=== PATIENT | female | born 1980 | race Caucasian/White ===

== ENCOUNTER 2017-05-25 06:46 | Emergency (ER) | payer OTHER ==
[~2017-05-25] VITALS: Ht 160 cm; Wt 83.0 kg
[~2017-05-25 06:46] MED LIST: CLR10 PO; LORA10TA57 PO
[2017-05-25 06:52] VITALS: TEMP 36.9; Ht 160 cm; Wt 83.0 kg
[2017-05-25] MEDS ORDERED: KETOROLAC TROMETHAMINE 30 MG/ML VIAL IV STA (06:57)
[2017-05-25] MEDS ORDERED: ONDANSETRON INJ 2 MG/ML 2 ML VIAL IV STA (06:57)
[2017-05-25] MEDS ORDERED: SODIUM CHLORIDE 0.9% 1000ML 1,000 ML IV STA (06:57)
--- NOTE | 2017-05-25 07:12 | EMERGENCY ROOM VISIT NOTE ---
History Report prepared by Lizette: Leatha Gauthier Under the Supervision of: Trevor CasasO. First contact with patient: 06:56 Chief Complaint: FLANK PAIN Stated Complaint: SEVER PAIN IN RT SIDE/BACK,PAINFUL URGE TO URINATE History of Present Illness The patient is a 36 year old female who presents to the Emergency Room with complaints of constant severe pain on the right side of her back that started just prior to arrival. She states that her back pain is radiating to her front right abdomen. The patient notes that she woke up with the painful urge to urinate. The patient states that she has had two pregnancies but has no children. Source of History: patient Onset: just prior to arrival Position: back Symptom Intensity: severe Quality: other (radiating) Timing: constant Associated Symptoms: + abdominal pain (radiating from back), + urinary symptoms (painful urge to urinate) Review of Systems See HPI for pertinent positives & negatives. A total of 10 systems reviewed and were otherwise negative. Past Medical & Surgical Medical Problems: (1) Lumbar strain (2) Family History no pertinent family history stated Social History Smoking Status: Never Smoker Alcohol Use: none Drug Use: none Marital Status: single Occupation Status: employed Current/Historical Medications Scheduled Cetirizine (Zyrtec), 10 MG PO DAILY Ethinyl Estrad/Norgestimate (Sprintec 28), 1 TAB PO DAILY Fluticasone Propionate (Flovent Hfa), 2 PUFFS INH DAILY Tamsulosin Hcl (Flomax), 0.4 MG PO HS Scheduled PRN Albuterol Hfa (Ventolin Hfa), 2 PUFFS INH Q6H PRN for SOB/Wheezing Oxycodone/Acetaminophen 5MG/325MG (Percocet 5MG/325MG), 1 TAB PO Q6H PRN for Pain Allergies Coded Allergies: Erythromycin (Unverified Allergy, Mild, 05/25/17) Physical Exam Vital Signs Date Time Temp Pulse Resp B/P (MAP) Pulse Ox O2 Delivery O2 Flow Rate FiO2 05/25/17 10:41 70 18 113/69 97 05/25/17 09:52 69 20 119/66 97 Room Air 05/25/17 08:03 77 20 116/63 97 Room Air 05/25/17 06:52 36.9 77 18 124/84 99 Room Air Physical Exam CONSTITUTIONAL/VITAL SIGNS: Reviewed / noted above. GENERAL: Non-toxic in appearance. INTEGUMENTARY: Warm, dry, and Effie. HEAD: Normocephalic. EYES: without scleral icterus or trauma. ENT/OROPHARYNX: clear and moist. LYMPHADENOPATHY/NECK: Is supple without lymphadenopathy or meningismus. RESPIRATORY: Lungs clear and equal. CARDIOVASCULAR: Regular rate and rhythm. GI/ABDOMEN: Soft and nontender. No organomegaly or pulsatile mass. No rebound or guarding. Normal bowel sounds. EXTREMITIES: Warm and well perfused. BACK: Right CVA tenderness. NEUROLOGICAL: Intact without focal deficits. PSYCHIATRIC: normal affect. MUSCULOSKELETAL: Normally developed with good muscle tone. Medical Decision & Procedures ER Provider Diagnostic Interpretation: Radiology results as stated below per my review and radiologist interpretation: CT OF THE ABDOMEN AND PELVIS WITHOUT CONTRAST, STONE PROTOCOL FINDINGS: A 6 mm distal right ureteral calculus results in mild right hydroureteronephrosis. There are multiple right renal calculi which measure up to 3 mm. There are probable punctate left renal calculi. A left pelvic calcification likely reflects a phlebolith. There is no evidence for a bowel obstruction. Evaluation the remainder of the abdomen and pelvis is suboptimal on this unenhanced exam. Unenhanced images of the liver, spleen, adrenal glands and pancreas are normal. The appendix is normal. There is no lymphadenopathy. There is a 2.5 cm cyst or dominant follicle within the right ovary. Note is made of grade I anterolisthesis of L5 on S1 due to bilateral L5 pars defects. IMPRESSION: 1. 6 mm distal right ureteral calculus which results in mild right hydroureteronephrosis. 2. Multiple right renal calculi which measure up to 3 mm. Suspected punctate left renal calculi. Electronically signed by: Edison Mason M.D. Laboratory Results 05/25/17 07:15 Red Blood Count 4.19, Mean Corpuscular Volume 94.7, Mean Corpuscular Hemoglobin 32.2, Mean Corpuscular Hemoglobin Concent 34.0, Mean Platelet Volume 10.7, Neutrophils (%) (Auto) 59.3, Lymphocytes (%) (Auto) 30.2, Monocytes (%) (Auto) 6.1, Eosinophils (%) (Auto) 3.8, Basophils (%) (Auto) 0.5, Neutrophils # (Auto) 4.56, Lymphocytes # (Auto) 2.32, Monocytes # (Auto) 0.47, Eosinophils # (Auto) 0.29, Basophils # (Auto) 0.04 05/25/17 07:15 Test 05/25/17 07:15 05/25/17 07:54 White Blood Count 7.69 K/uL (4.8-10.8) Red Blood Count 4.19 M/uL (4.2-5.4) Hemoglobin 13.5 g/dL (12.0-16.0) Hematocrit 39.7 % (37-47) Mean Corpuscular Volume 94.7 fL (80-100) Mean Corpuscular Hemoglobin 32.2 pg (25-34) Mean Corpuscular Hemoglobin Concent 34.0 g/dl (32-36) Platelet Count 282 K/uL (130-400) Mean Platelet Volume 10.7 fL (7.4-10.4) Neutrophils (%) (Auto) 59.3 % Lymphocytes (%) (Auto) 30.2 % Monocytes (%) (Auto) 6.1 % Eosinophils (%) (Auto) 3.8 % Basophils (%) (Auto) 0.5 % Neutrophils # (Auto) 4.56 K/uL (1.4-6.5) Lymphocytes # (Auto) 2.32 K/uL (1.2-3.4) Monocytes # (Auto) 0.47 K/uL (0.11-0.59) Eosinophils # (Auto) 0.29 K/uL (0-0.5) Basophils # (Auto) 0.04 K/uL (0-0.2) RDW Standard Deviation 47.6 fL (36.4-46.3) RDW Coefficient of Variation 13.9 % (11.5-14.5) Immature Granulocyte % (Auto) 0.1 % Immature Granulocyte # (Auto) 0.01 K/uL (0.00-0.02) Anion Gap 5.0 mmol/L (3-11) Est Creatinine Clear Calc Drug Dose 79.3 ml/min Estimated GFR () 83.9 Estimated GFR (Non- 72.4 BUN/Creatinine Ratio 12.5 (10-20) Calcium Level 9.0 mg/dl (8.5-10.1) Total Bilirubin 0.4 mg/dl (0.2-1) Direct Bilirubin < 0.1 mg/dl (0-0.2) Aspartate Amino Transf (AST/SGOT) 11 U/L (15-37) Alanine Aminotransferase (ALT/SGPT) 16 U/L (12-78) Alkaline Phosphatase 54 U/L (45-117) Total Protein 6.8 gm/dl (6.4-8.2) Albumin 3.4 gm/dl (3.4-5.0) Lipase 159 U/L (73-393) Urine Color ORANGE Urine Appearance CLOUDY (CLEAR) Urine pH 8.5 (4.5-7.5) Urine Specific [place] 1.024 (1.000-1.030) Urine Protein TRACE (NEG) Urine Glucose (UA) NEG (NEG) Urine Ketones NEG (NEG) Urine Occult Blood 3+ (NEG) Urine Nitrite NEG (NEG) Urine Bilirubin NEG (NEG) Urine Urobilinogen NEG (NEG) Urine Leukocyte Esterase TRACE (NEG) Urine WBC (Auto) 1-5 /hpf (0-5) Urine RBC (Auto) >30 /hpf (0-4) Urine Hyaline Casts (Auto) 0 /lpf (0-5) Urine Epithelial Cells (Auto) >30 /lpf (0-5) Urine Bacteria (Auto) NEG (NEG) Urine Test NEG (NEG) Laboratory results as stated above per my review. Medications Administered Medications (Trade) Dose Ordered Sig/Marycarmen Route Start Time Stop Time Status Last Admin Dose Admin Sodium Chloride 1,000 ml @ 999 mls/hr Q1H1M STAT IV 05/25/17 06:57 05/25/17 07:57 DC 05/25/17 07:16 999 MLS/HR Ondansetron HCl (Zofran Inj) 4 mg NOW STAT IV 05/25/17 06:57 05/25/17 06:58 DC 05/25/17 07:16 4 MG Ketorolac Tromethamine (Toradol Inj) 30 mg NOW STAT IV 05/25/17 06:57 05/25/17 06:58 DC 05/25/17 07:16 30 MG Tamsulosin HCl (Flomax Cap) 0.4 mg NOW ONCE PO 05/25/17 10:15 05/25/17 10:16 DC 05/25/17 10:33 0.4 MG ED Course 0656: Previous medical records were reviewed. The patient was evaluated in room B7. A complete history and physical examination was performed. 0657: Toradol Inj 30 mg IV, Zofran Inj 4 mg IV, Sodium Chloride 1000 ml @ 999 mls/hr IV. 1015: Flomax Cap 0.4 mg PO 1020: On reevaluation, the patient is resting. I discussed the results and findings with the patient. She verbalized agreement of the treatment plan. the patient was discharged home. Medical Decision Differential considered: pancreatitis, hepatitis, or acute cholecystitis, AAA, UTI, pyelonephritis, kidney stones, appendicitis, diverticulitis, shingles, bowel obstruction mesenteric ischemia, intussusception,hernia, ovarian torsion , ruptured ovarian cyst,ectopic , . This is a 36-year-old female who presents to the ED with a chief complaint of right flank pain. The symptoms started around 3 AM this morning. She also reports the urge to urinate. Her last menstrual period started in the last 48 hours. She is a . The patient has right CVA tenderness on exam. She has no abdominal tenderness. Her vital signs are normal. The patient's CBC and PRP are normal. A CT scan suggests a 6 mm distal right ureteral calculus with some obstructive changes. Urine did not show obvious infection. She is not . The patient was treated with IV fluids, IV Toradol and IV Zofran. She was given by mouth Flomax. She was told the results. She is felt to be stable for discharge and outpatient follow-up. Blood Pressure Screening Patient's blood pressure: Normal blood pressure Blood pressure disposition: Did not require urgent referral Impression Primary Impression: Renal colic Additional Impression: Ureteral calculus Scribe Attestation The scribe's documentation has been prepared under my direction and personally reviewed by me in its entirety. I confirm that the note above accurately reflects all work, treatment, procedures, and medical decision making performed by me. Departure Information Dispostion Home / Self-Care Prescriptions Oxycodone/Acetaminophen 5MG/325MG (PERCOCET 5MG/325MG) Tab 1 TAB PO Q6H Y for Pain, #20 TAB Prov: Saul Black D.O. 05/25/17 Tamsulosin Hcl (FLOMAX) 0.4 Mg Cap 0.4 MG PO HS, #6 CAP Prov: Saul Black D.O. 05/25/17 Referrals No Doctor, Assigned (PCP) Forms HOME CARE DOCUMENTATION FORM, IMPORTANT VISIT INFORMATION Patient Instructions Kidney Stones - [facility], My [facility] Additional Instructions Take ibuprofen 600 mg every 6 hours until passage of stone. Strain urine for stone. Flomax as prescribed. Percocet as prescribed. No driving within 6 hours of use. Do not take additional Tylenol while taking Percocet. Follow-up with your doctor for further care and evaluation in 1-2 days. Return to the emergency department for worsening or new symptoms or any concerns. You have been examined and treated today on an emergency basis only. This is not a substitute for, or an effort to provide, complete comprehensive medical care. It is impossible to recognize and treat all injuries or illnesses in a single emergency department visit. It is therefore important that you follow up closely with your doctor. Call as soon as possible for an appointment. Problem Qualifiers
[2017-05-25 07:31] LABS: BASO % 0.5 %; BASO ABS # 0.04 K/uL (0-0.2); COMPLETE YES; EOS % 3.8 %; HEMATOCRIT 39.7 % (37-47); IG% 0.1 %; LYMPH % 30.2 %; LYMPH ABS # 2.32 K/uL (1.2-3.4); MEAN CELL VOLUME 94.7 fL (80-100); MEAN CORPUSCULAR HEMOGLOBIN 32.2 pg (25-34); MEAN PLATELET VOLUME 10.7 fL (7.4-10.4); MONO % 6.1 %; NEUT % 59.3 %; PLATELET COUNT 282 K/uL (130-400); RED BLOOD COUNT 4.19 M/uL (4.2-5.4); WHITE BLOOD COUNT 7.69 K/uL (4.8-10.8)
[2017-05-25 07:49] LABS: ALT/SGPT 16 U/L (12-78); AST/SGOT 11 U/L (15-37); BLOOD UREA NITROGEN 12 mg/dl (7-18); BUN/CREATININE RATIO 12.5 (10-20); CARBON DIOXIDE 27 mmol/L (21-32); CHLORIDE 108 mmol/L (98-107); GLUCOSE 94 mg/dl (70-99); POTASSIUM 3.9 mmol/L (3.5-5.1); SODIUM 140 mmol/L (136-145)
[2017-05-25 07:52] LABS: ALKALINE PHOSPHATASE 54 U/L (45-117)
[2017-05-25 08:06] LABS: URINE APPEARANCE CLOUDY (CLEAR); URINE BILIRUBIN NEG (NEG); URINE COLOR ORANGE; URINE EPITHELIAL CELL AUTO >30 /lpf (0-5); URINE NITRITE NEG (NEG); URINE PH 8.5 (4.5-7.5); URINE SPECIFIC GRAVITY 1.024 (1.000-1.030); UROBILINOGEN NEG (NEG); ZZUR CULT IF INDIC CLEAN CATCH NO
--- NOTE | 2017-05-25 08:14 | DIAGNOSTIC IMAGING REPORT ---
CT OF THE ABDOMEN AND PELVIS WITHOUT CONTRAST, STONE PROTOCOL CLINICAL HISTORY: Right flank pain. COMPARISON STUDY: None. TECHNIQUE: Helical axial images of the abdomen and pelvis were obtained without IV or oral contrast according to renal stone protocol. A dose lowering technique was utilized adhering to the principles of ALARA. FINDINGS: A 6 mm distal right ureteral calculus results in mild right hydroureteronephrosis. There are multiple right renal calculi which measure up to 3 mm. There are probable punctate left renal calculi. A left pelvic calcification likely reflects a phlebolith. There is no evidence for a bowel obstruction. Evaluation the remainder of the abdomen and pelvis is suboptimal on this unenhanced exam. Unenhanced images of the liver, spleen, adrenal glands and pancreas are normal. The appendix is normal. There is no lymphadenopathy. There is a 2.5 cm cyst or dominant follicle within the right ovary. Note is made of grade I anterolisthesis of L5 on S1 due to bilateral L5 pars defects. IMPRESSION: 1. 6 mm distal right ureteral calculus which results in mild right hydroureteronephrosis. 2. Multiple right renal calculi which measure up to 3 mm. Suspected punctate left renal calculi. Electronically signed by: Edison Mason M.D. 05/25/2017 8:13 AM Dictated Date/Time: 05/25/2017 7:50 AM
[2017-05-25 08:24] LABS: MANUAL MICROSCOPIC REQUIRED? NO; REVIEW REQ? NO; SULFASALICYLIC ACID POS (NEG)
[2017-05-25] MEDS ORDERED: OXYC-57 PO (10:07)
[2017-05-25] MEDS ORDERED: TAMS0.4C38 PO (10:07)
[2017-05-25] MEDS ORDERED: TAMSULOSIN HCL 0.4 MG CAP PO ONE (10:15)
[2017-05-25 10:41] VITALS: BP 113/69; PULSE 70; O2SAT 97
[2017-05-29] MEDS ORDERED: FLVHFA110 INH (07:08)
[2017-05-29] MEDS ORDERED: SPR28 PO (07:08)
[2017-05-29] MEDS ORDERED: CETI10TA84 PO (07:08)
[2017-05-29] MEDS ORDERED: VNTHFA/IN INH (07:08)
== END 2017-05-25 10:43 | disposition home or self-care (01) ==
LOC: C.EDB 06:47
DX: N23 Unspecified renal colic (principal); N20.1 Calculus of ureter; Z79.899 Other long term (current) drug therapy

== ENCOUNTER 2017-05-29 13:59 | Inpatient (IN) | payer OTHER ==
[~2017-05-29] VITALS: Ht 160 cm; Wt 82.0 kg
[~2017-05-29 13:59] MED LIST changes: +CETI10TA84 PO; -CLR10 PO; +FLVHFA110 INH; -LORA10TA57 PO; +OXYC-57 PO; +SPR28 PO; +TAMS0.4C38 PO; +VNTHFA/IN INH
--- NOTE | 2017-05-29 15:37 | EMERGENCY ROOM VISIT NOTE ---
History First contact with patient: 15:21 Chief Complaint: REFERRED BY DOCTOR Stated Complaint: KIDNEY STONE - SEVERE PAIN - DR WYMAN History of Present Illness The patient is a 36 year old female who presents to the Emergency Room via private vehicle with complaints of "kidney stone, severe pain, Dr. wyman". The patient states that she was seen here Thursday, and diagnosed with a right sided renal calculi at 6 mm. She was given Flomax, and Percocet and try to pass the stone on her own at home, however the pain is persisted. She has also had no bowel movement since Thursday. She is concerned medication may have caused her bowel movements to be slowed. She notes she has tried to pass stool , and has had to digitally disimpact herself without success. She notes her family doctor told her to package pick up an enema from [facility], which she called Dr. Dominguez, her urologist who recommended she come here to the emergency department for further evaluation and management. She has right flank pain rated as an 8/10, lower abdominal pressure since Thursday rated as a 7/10. She has been taking the Flomax each day at 6 PM. She also takes the Percocet as needed for pain. She denies chance of . She denies any hematuria since Thursday. There's been no nausea, vomiting or diarrhea. No fevers. She does feel cold at times of severe pain. She denies any previous history of renal calculi, or other urinary tract problems. She last took her Percocet 20 minutes prior to arrival here in the waiting room at 3:20 PM. She states that this has been severely limiting her ability to work. Review of Systems A complete 10-point Review of Systems was discussed with the patient, with pertinent positives and negatives listed in the History of Present Illness. All remaining Review of Systems questions can be considered negative unless otherwise specified. Past Medical/Surgical History Medical Problems: (1) Asthma (2) Lumbar strain (3) Surgical Problems: (1) Status post therapeutic Family History No pertinent family history. Social History Smoking Status: Never Smoker Alcohol Use: none Drug Use: none Marital Status: single Occupation Status: employed Current/Historical Medications Scheduled Cetirizine (Zyrtec), 10 MG PO DAILY Ethinyl Estrad/Norgestimate (Sprintec 28), 1 TAB PO DAILY Fluticasone Propionate (Flovent Hfa), 2 PUFFS INH BID Tamsulosin Hcl (Flomax), 0.4 MG PO HS Scheduled PRN Albuterol Hfa (Ventolin Hfa), 2 PUFFS INH Q4 PRN for SOB/Wheezing Oxycodone/Acetaminophen 5MG/325MG (Percocet 5MG/325MG), 1 TAB PO Q6H PRN for Pain Physical Exam Vital Signs Date Time Temp Pulse Resp B/P (MAP) Pulse Ox O2 Delivery O2 Flow Rate FiO2 05/29/17 16:12 62 05/29/17 16:09 96 Room Air 05/29/17 16:00 68 12 114/64 98 Room Air 05/29/17 14:04 37.0 89 20 140/79 96 Room Air Physical Exam VITAL SIGNS - Vital signs and nursing notes were reviewed. Patient is afebrile , blood pressure 140/70, non-tachycardic and is saturating well on room air at 96%. GENERAL -36-year-old female appearing her stated age who is in no acute distress. Communicates well with provider and answers questions appropriately. SKIN - Without rashes. No petechial rashes. HEAD - NC/AT. LUNGS - Chest wall symmetric without accessory muscle use, intercostals retractions, or central cyanosis. Normal vesicular breath sounds CTA B/L. No wheezes, rales, or rhonchi appreciated. CARDIAC - RRR with S1/S2. No murmur, rubs, or gallops appreciated. ABDOMEN - Abdominal contour without pulsations or visible masses. BS normoactive all four quadrants. There is suprapubic abdominal tenderness, and right-sided CVA tenderness. No palpable masses, hepatosplenomegaly, or ascites noted. Medical Decision & Procedures ER Provider Diagnostic Interpretation: KUB HISTORY: Hx renal calculi, no bowel movement acute low back and right flank pain. COMPARISON: CT abdomen and pelvis 05/25/2017. FINDINGS: The bowel gas pattern is non-obstructive. There is moderate volume of formed stool within the right hemicolon. There is no organomegaly. 6 x 4 mm calculus which was previously seen within the region of the distal right ureter appears to have migrated slightly caudally and medially, possibly within the region of the urinary bladder. No pneumoperitoneum or pneumatosis. No fracture. IMPRESSION: Previously noted 6 x 4 mm calculus of the distal right ureter appears to have migrated slightly caudally and medially suggesting location within the urinary bladder lumen. Electronically signed by: Brayan Galvan M.D. 05/29/2017 4:37 PM Dictated Date/Time: 05/29/2017 4:34 PM Laboratory Results Test 05/29/17 15:35 05/29/17 16:00 Prothrombin Time 10.2 SECONDS (9.0-12.0) Prothromb Time International Ratio 1.0 (0.9-1.1) Activated Partial Thromboplast Time 25.9 SECONDS (21.0-31.0) Partial Thromboplastin Ratio 1.0 Total Bilirubin 0.3 mg/dl (0.2-1) Aspartate Amino Transf (AST/SGOT) 25 U/L (15-37) Alanine Aminotransferase (ALT/SGPT) 30 U/L (12-78) Alkaline Phosphatase 57 U/L (45-117) Total Protein 8.0 gm/dl (6.4-8.2) Albumin 4.1 gm/dl (3.4-5.0) Globulin 3.9 gm/dl (2.5-4.0) Albumin/Globulin Ratio 1.1 (0.9-2) Urine Color YELLOW Urine Appearance CLEAR (CLEAR) Urine pH 6.0 (4.5-7.5) Urine Specific [place] 1.011 (1.000-1.030) Urine Protein NEG (NEG) Urine Glucose (UA) NEG (NEG) Urine Ketones TRACE (NEG) Urine Occult Blood TRACE (NEG) Urine Nitrite NEG (NEG) Urine Bilirubin NEG (NEG) Urine Urobilinogen NEG (NEG) Urine Leukocyte Esterase NEG (NEG) Urine WBC (Auto) 0 /hpf (0-5) Urine RBC (Auto) 0-4 /hpf (0-4) Urine Hyaline Casts (Auto) 0 /lpf (0-5) Urine Epithelial Cells (Auto) 0-5 /lpf (0-5) Urine Bacteria (Auto) NEG (NEG) Urine Test NEG (NEG) Medications Administered Medications (Trade) Dose Ordered Sig/Marycarmen Route Start Time Stop Time Status Last Admin Dose Admin Morphine Sulfate (MoRPHine SULFATE INJ) 4 mg NOW STAT IV 05/29/17 15:47 05/29/17 15:49 DC 05/29/17 16:07 4 MG Ondansetron HCl (Zofran Inj) 4 mg NOW STAT IV 05/29/17 15:47 05/29/17 15:49 DC 05/29/17 16:07 4 MG Sodium Chloride 1,000 ml @ 999 mls/hr Q1H1M STAT IV 05/29/17 15:47 05/29/17 16:47 DC 05/29/17 16:07 999 MLS/HR Medical Decision Patient was seen and evaluated as above. After obtaining a thorough history and physical examination IV access was initiated, and the above workup was performed. Patient presents to us today with persistent right flank pain after the diagnosis of renal calculi, as well as now to review with abdominal pain without a bowel movement over the past few days. She's been taking opioid pain medication as prescribed. She is tried to digitally disimpact herself without good relief. At this time because of the hydronephrosis, and the patient has essentially try the outpatient management I do believe that inpatient management is warranted, with neurologic consult. I did speak with Dr. Dominguez regarding the patient case after obtaining a KUB x-ray. It was decided to admit the patient for IV pain control, have the patient to try and pass the stone inpatient, and if not potential removal in the morning. CBC reveals no leukocytosis or anemia. Coags unremarkable. Metabolic panel unremarkable for emergent process. Urine reveals trace ketones occult blood. Urine test is negative. KUB results as above. I discussed the case with the hospitalist, who will admit the patient for further evaluation and management. In evaluation treatment this patient following differential diagnoses were entertained: Fecal impaction, retained urinary calculi, hydronephrosis, infected stone, pyelonephritis, UTI, among others. Impression Primary Impression: Ureteral calculus Departure Information Dispostion Admitted as an inpatient Condition GOOD Referrals Dorene Quiroga DO (PCP) Patient Instructions My [facility]
[2017-05-29 15:45] LABS: BASO % 0.3 %; BASO ABS # 0.03 K/uL (0-0.2); COMPLETE YES; EOS % 1.8 %; HEMATOCRIT 41.4 % (37-47); IG% 0.3 %; LYMPH % 22.8 %; LYMPH ABS # 2.18 K/uL (1.2-3.4); MEAN CELL VOLUME 95.6 fL (80-100); MEAN CORPUSCULAR HEMOGLOBIN 32.8 pg (25-34); MEAN CORPUSCULAR HGB CONC 34.3 g/dl (32-36); MEAN PLATELET VOLUME 10.5 fL (7.4-10.4); MONO % 5.4 %; NEUT % 69.4 %; PLATELET COUNT 319 K/uL (130-400); RED BLOOD COUNT 4.33 M/uL (4.2-5.4); WHITE BLOOD COUNT 9.56 K/uL (4.8-10.8)
[2017-05-29] MEDS ORDERED: ONDANSETRON INJ 2 MG/ML 2 ML VIAL IV STA (15:47)
[2017-05-29] MEDS ORDERED: MoRPHine SULFATE 4 MG/ML 1 ML CARP\\VIAL IV STA (15:47)
[2017-05-29] MEDS ORDERED: SODIUM CHLORIDE 0.9% 1000ML 1,000 ML IV STA (15:47)
[2017-05-29 15:54] LABS: PROTHROMBIN TIME (PATIENT) 10.2 SECONDS (9.0-12.0)
[2017-05-29 16:02] LABS: BUN/CREATININE RATIO 8.3 (10-20); CALCIUM 9.3 mg/dl (8.5-10.1); CREATININE 0.98 mg/dl (0.60-1.20); POTASSIUM 3.7 mmol/L (3.5-5.1)
[2017-05-29 16:05] LABS: ALB/GLOB RATIO 1.1 (0.9-2)
[2017-05-29 16:32] LABS: URINE APPEARANCE CLEAR (CLEAR); URINE BILIRUBIN NEG (NEG); URINE COLOR YELLOW; URINE EPITHELIAL CELL AUTO 0-5 /lpf (0-5); URINE NITRITE NEG (NEG); URINE SPECIFIC GRAVITY 1.011 (1.000-1.030); UROBILINOGEN NEG (NEG); ZZUR CULT IF INDIC CLEAN CATCH NO
[2017-05-29 16:33] LABS: MANUAL MICROSCOPIC REQUIRED? NO; REVIEW REQ? NO
--- NOTE | 2017-05-29 16:38 | DIAGNOSTIC IMAGING REPORT ---
KUB HISTORY: Hx renal calculi, no bowel movement acute low back and right flank pain. COMPARISON: CT abdomen and pelvis 05/25/2017. FINDINGS: The bowel gas pattern is non-obstructive. There is moderate volume of formed stool within the right hemicolon. There is no organomegaly. 6 x 4 mm calculus which was previously seen within the region of the distal right ureter appears to have migrated slightly caudally and medially, possibly within the region of the urinary bladder. No pneumoperitoneum or pneumatosis. No fracture. IMPRESSION: Previously noted 6 x 4 mm calculus of the distal right ureter appears to have migrated slightly caudally and medially suggesting location within the urinary bladder lumen. Electronically signed by: Brayan Galvan M.D. 05/29/2017 4:37 PM Dictated Date/Time: 05/29/2017 4:34 PM
[2017-05-29 17:43] VITALS: O2SAT 96; Ht 160 cm; Wt 82.0 kg
[2017-05-29] MEDS ORDERED: MoRPHine SULFATE 4 MG/ML 1 ML CARP\\VIAL IV PRN (17:45)
[2017-05-29] MEDS ORDERED: ACETAMINOPHEN 325 MG TAB PO PRN (17:45)
[2017-05-29] MEDS ORDERED: ONDANSETRON INJ 2 MG/ML 2 ML VIAL IV PRN (17:45)
[2017-05-29] MEDS ORDERED: ALBUTEROL HFA 8 GM INHALER INH PRN (18:00)
[2017-05-29] MEDS ORDERED: IV FLUIDS COMPLETED PRN (18:00)
[2017-05-29] MEDS ORDERED: BISACODYL 10 MG SUPP PR PRN (18:15)
[2017-05-29 19:28] VITALS: O2SAT 99
[2017-05-29] MEDS: SODIUM CHLORIDE 0.9% 1000ML 1,000 ML IV SCH (19:56)
[2017-05-29] MEDS ORDERED: POLYETHYLENE (MIRALAX) 17 GM PACK PO SCH (21:00)
[2017-05-29] MEDS ORDERED: TAMSULOSIN HCL 0.4 MG CAP PO SCH (21:00)
[2017-05-29] MEDS: FLUTICASONE HFA 110MCG INHALER INH SCH (21:00)
[2017-05-29] MEDS ORDERED: NURSING VERBAL MED ORDER ONE (21:00)
--- NOTE | 2017-05-29 21:02 | Urology Consultation ---
History General Date of Service: May 29, 2017. Chief Complaint: right renal colic Primary Care Physician: Dorene Quiroga,DO Pt seen a urologist before?: No History of Present Illness I am aasked by Dr Quiroga and Ms. Tra LEW to eval and treat pt for right renal colic. She was in ER Thursday with distal 5mm right ureteral stone on CT. She has failed outpatient med management due to pain and constipation. Stone has moved another half inch more distal and is at the UVJ now on new KUB today. Po intake is poor and constipation is severe. No fever. She has a 2mm right renal stone. Her creatinine is normal. Imaging Imaging: CT, KUB Laboratory Results Past 24 Hours Test 05/29/17 15:35 05/29/17 16:00 Range/Units White Blood Count 9.56 4.8-10.8 K/uL Red Blood Count 4.33 4.2-5.4 M/uL Hemoglobin 14.2 12.0-16.0 g/dL Hematocrit 41.4 37-47 % Mean Corpuscular Volume 95.6 80-100 fL Mean Corpuscular Hemoglobin 32.8 25-34 pg Mean Corpuscular Hemoglobin Concent 34.3 32-36 g/dl Platelet Count 319 130-400 K/uL Mean Platelet Volume 10.5 7.4-10.4 fL Neutrophils (%) (Auto) 69.4 % Lymphocytes (%) (Auto) 22.8 % Monocytes (%) (Auto) 5.4 % Eosinophils (%) (Auto) 1.8 % Basophils (%) (Auto) 0.3 % Neutrophils # (Auto) 6.63 1.4-6.5 K/uL Lymphocytes # (Auto) 2.18 1.2-3.4 K/uL Monocytes # (Auto) 0.52 0.11-0.59 K/uL Eosinophils # (Auto) 0.17 0-0.5 K/uL Basophils # (Auto) 0.03 0-0.2 K/uL RDW Standard Deviation 48.3 36.4-46.3 fL RDW Coefficient of Variation 13.9 11.5-14.5 % Immature Granulocyte % (Auto) 0.3 % Immature Granulocyte # (Auto) 0.03 0.00-0.02 K/uL Prothrombin Time 10.2 9.0-12.0 SECONDS Prothromb Time International Ratio 1.0 0.9-1.1 Activated Partial Thromboplast Time 25.9 21.0-31.0 SECONDS Partial Thromboplastin Ratio 1.0 Sodium Level 139 136-145 mmol/L Potassium Level 3.7 3.5-5.1 mmol/L Chloride Level 104 98-107 mmol/L Carbon Dioxide Level 27 21-32 mmol/L Anion Gap 8.0 3-11 mmol/L Blood Urea Nitrogen 8 7-18 mg/dl Creatinine 0.98 0.60-1.20 mg/dl Est Creatinine Clear Calc Drug Dose 80.5 ml/min Estimated GFR () 86.0 Estimated GFR (Non- 74.2 BUN/Creatinine Ratio 8.3 10-20 Random Glucose 88 70-99 mg/dl Calcium Level 9.3 8.5-10.1 mg/dl Total Bilirubin 0.3 0.2-1 mg/dl Aspartate Amino Transf (AST/SGOT) 25 15-37 U/L Alanine Aminotransferase (ALT/SGPT) 30 12-78 U/L Alkaline Phosphatase 57 45-117 U/L Total Protein 8.0 6.4-8.2 gm/dl Albumin 4.1 3.4-5.0 gm/dl Globulin 3.9 2.5-4.0 gm/dl Albumin/Globulin Ratio 1.1 0.9-2 Urine Color YELLOW Urine Appearance CLEAR CLEAR Urine pH 6.0 4.5-7.5 Urine Specific [place] 1.011 1.000-1.030 Urine Protein NEG NEG Urine Glucose (UA) NEG NEG Urine Ketones TRACE NEG Urine Occult Blood TRACE NEG Urine Nitrite NEG NEG Urine Bilirubin NEG NEG Urine Urobilinogen NEG NEG Urine Leukocyte Esterase NEG NEG Urine WBC (Auto) 0 0-5 /hpf Urine RBC (Auto) 0-4 0-4 /hpf Urine Hyaline Casts (Auto) 0 0-5 /lpf Urine Epithelial Cells (Auto) 0-5 0-5 /lpf Urine Bacteria (Auto) NEG NEG Urine Test NEG NEG Labs were reviewed and are within normal limits unless listed below. Labs are available in the chart and at [facility] Past History asthma Family History maternal grandfather had stones Social History Hx Tobacco Use In Past Year?: No Smoking: quit greater than 1 year (quit 10 yrs ago) Alcohol: socially Drug use: none Marital status: single, in relationship Housing status: lives alone Occupation status: employed ([employer]) History of MDRO No Allergies Coded Allergies: Erythromycin (Unverified Allergy, Mild, 05/25/17) Medications Home Medications: Home Meds and Scripts Medications Dose Route/Sig Max Daily Dose Days Date Category Percocet 5MG/325MG (Oxycodone/Acetaminophen) Tab 1 Tab PO Q6H PRN 05/25/17 Rx Flomax (Tamsulosin Hcl) 0.4 Mg Cap 0.4 Mg PO HS 05/25/17 Rx Zyrtec (Cetirizine HCl) 10 Mg Tab 10 Mg PO DAILY 05/25/17 Reported Sprintec 28 (Ethinyl Estradiol/Norgestimate) 1 Tab Tab 1 Tab PO DAILY 05/25/17 Reported Flovent Hfa (Fluticasone Propionate) 120 Puffs/51671 Mcg Aero 2 Puffs INH BID 05/25/17 Reported Ventolin Hfa (Albuterol) 200 Puffs/52461 Mcg Aers 2 Puffs INH Q4 PRN 05/25/17 Reported Inpatient Medications: Current Inpatient Medications Medications (Trade) Dose Ordered Sig/Marycarmen Route Start Time Stop Time Status Last Admin Dose Admin Acetaminophen (Tylenol Tab) 650 mg Q4H PRN PO 05/29/17 17:45 06/28/17 17:44 Ondansetron HCl (Zofran Inj) 4 mg Q6H PRN IV 05/29/17 17:45 06/28/17 17:44 Morphine Sulfate (MoRPHine SULFATE INJ) 4 mg Q6 PRN IV 05/29/17 17:45 06/12/17 17:44 05/29/17 20:02 4 MG Sodium Chloride 1,000 ml @ 125 mls/hr Q8H IV 05/29/17 19:45 06/28/17 19:44 05/29/17 19:56 125 MLS/HR Heparin Sodium (Porcine) (Heparin Sq 5000 Unit/0.5ml) 5,000 unit Q8 SQ 05/29/17 22:00 06/28/17 21:59 Albuterol (Ventolin Hfa Inhaler) 2 puffs Q4 PRN INH 05/29/17 18:00 06/28/17 17:59 Cetirizine HCl (zyrTEC TAB) 10 mg DAILY PO 05/30/17 09:00 06/29/17 08:59 Fluticasone Propionate (Flovent Hfa 110MCG Inhaler) 2 puffs BID INH 05/29/17 21:00 06/28/17 20:59 Tamsulosin HCl (Flomax Cap) 0.4 mg HS PO 05/29/17 21:00 06/28/17 20:59 Miscellaneous (Iv Fluids Completed) 1 ea PRN PRN N/A 05/29/17 18:00 05/29/18 17:59 Polyethylene (Miralax Powder Packet) 17 gm QPM PO 05/29/17 21:00 06/28/17 20:59 Docusate Sodium (coLACE CAP) 100 mg BID PO 05/29/17 21:00 06/28/17 20:59 Bisacodyl (Dulcolax Supp) 10 mg DAILY PRN KS 05/29/17 18:15 06/28/17 18:14 Miscellaneous Information (Order Awaiting Action) 1 ea QS N/A 05/30/17 00:00 06/29/17 00:00 Review of Systems Review of Systems Constitutional: + chills, No fever Neurological: No dizzy Endocrine: + tired/sluggish, No excessive thirst Gastrointestinal: + abdominal pain, + indigestion, + nausea, + constipation Cardiovascular: No chest pain, No palpitations Respiratory: No shortness of breath, No wheezing, No chronic cough Skin: No rash, No dry skin Musculoskeletal: No joint pain Female : + frequent urination, + painful urination, + kidney stones Physical Exam Vital Signs: Vital Signs Past 12 Hours Date Time Temp Pulse Resp B/P (MAP) Pulse Ox O2 Delivery O2 Flow Rate FiO2 05/29/17 19:33 60 16 119/72 98 05/29/17 19:28 37.1 66 18 119/72 99 Room Air 05/29/17 18:42 74 16 129/71 96 Room Air 05/29/17 17:43 96 Room Air 05/29/17 16:12 62 05/29/17 16:09 96 Room Air 05/29/17 16:00 68 12 114/64 98 Room Air 05/29/17 14:04 37.0 89 20 140/79 96 Room Air Physical Exam: General Appearance: WD/WN, no apparent distress, + pertinent finding (not toxic in no acute distress, look stired) Eyes: bilateral eyes normal inspection ENT: hearing grossly normal Neck: supple, no adenopathy, no JVD, trachea midline Respiratory/Chest: normal breath sounds, no respiratory distress, no accessory muscle use Gastrointestinal: Abdomen: normal abdomen Renal: cva tenderness (right) Hernia: absent hernia Liver: normal liver Spleen: normal spleen Extremities: non-tender, normal inspection, no pedal edema, no calf tenderness , normal capillary refill Neurologic/Psychiatric: alert, normal mood/affect, oriented x 3 Assessment & Plan Assessment & Plan 5mm right uvj stone has made progress since Thursday I am hopeful she will pass flomax daily strain urine just needs some pain meds to cover her in interim. The 4mg morphine is giving unpleasant total body sensation so we will try 2mg and add some toradol as well. I have described ureteroscopy and if she does not pass stone soon we will proceed to OR for right ureteroscopy laser lithotripsy basket stone extraction possible stent.
[2017-05-29] MEDS ORDERED: MoRPHine SULFATE 2 MG/ML CARP IV PRN (21:15)
[2017-05-29] MEDS ORDERED: KETOROLAC TROMETHAMINE 30 MG/ML VIAL IV. PRN (21:15)
[2017-05-29] MEDS: DOCUSATE SODIUM 100 MG CAP PO SCH (21:29)
[2017-05-29] MEDS: HEPARIN SOD 5000 UNIT/0.5 ML CARP SQ SCH (21:44)
--- NOTE | 2017-05-29 21:52 | History and Physical ---
History & Physical Date & Time of Service: May 29, 2017 at 17:49 Chief Complaint: Kidney Stone - Severe Pain - Dr Referred Primary Care Physician: Dorene Quiroga DO History of Present Illness Source: patient, clinic records, hospital records This is a 36 year old female with PMH of asthma who presents to the ED with right flank pain. Pt was seen in [facility] ER on 05/25/[address] a/p showed 6 mm R ureteral stone with mild right hydronephrosis. Pt was discharged on Percocet and Flomax. She has not passed the stone. She continues with right flank pain as well as suprapubic pain. Pain was not controlled using Percocet at home, but feels better after IV morphine given in ER. She reports no BM x 4 days. She has not tried any medication for constipation. Had hematuria on 05/25, but no further hematuria from that time. She notes pressure and burning after urination. Had cold sweats yesterday. Denies fever. Has been eating/ drinking normally. No nausea/ vomiting. No chest tightness or wheezing. Past Medical/Surgical History Medical Problems: (1) Asthma Status: Chronic (2) Lumbar strain Status: Resolved (3) Status: Resolved Surgical Problems: (1) Status post therapeutic Status: Chronic Social History Smoking Status: Never Smoker Drug Use: none Marital Status: single Housing status: lives alone Occupational Status: employed Multi-Drug Resistant Organisms History of MDRO: No Allergies Coded Allergies: Erythromycin (Unverified Allergy, Mild, 05/25/17) Home Medications Scheduled Cetirizine (Zyrtec), 10 MG PO DAILY Ethinyl Estrad/Norgestimate (Sprintec 28), 1 TAB PO DAILY Fluticasone Propionate (Flovent Hfa), 2 PUFFS INH BID Tamsulosin Hcl (Flomax), 0.4 MG PO HS Scheduled PRN Albuterol Hfa (Ventolin Hfa), 2 PUFFS INH Q4 PRN for SOB/Wheezing Oxycodone/Acetaminophen 5MG/325MG (Percocet 5MG/325MG), 1 TAB PO Q6H PRN for Pain Physical Exam Vital Signs Date Time Temp Pulse Resp B/P (MAP) Pulse Ox O2 Delivery O2 Flow Rate FiO2 05/29/17 16:12 62 05/29/17 16:09 96 Room Air 05/29/17 16:00 68 12 114/64 98 Room Air 05/29/17 14:04 37.0 89 20 140/79 96 Room Air General Appearance: WD/WN, no apparent distress, + pertinent finding (mother at bedside) Head: normocephalic, atraumatic Eyes: normal inspection, sclerae normal ENT: normal ENT inspection, hearing grossly normal Neck: supple, trachea midline Respiratory/Chest: lungs clear, normal breath sounds, no respiratory distress, no accessory muscle use Cardiovascular: regular rate, rhythm, no murmur Abdomen/GI: normal bowel sounds, soft, + pertinent finding (+ suprapubic and RLQ tenderness) Back: + right CVA tenderness (mild) Extremities/Musculoskelatal: normal inspection, no pedal edema Neurologic/Psych: alert, normal mood/affect, oriented x 3 Skin: normal color, warm/dry Diagnostics Laboratory Results Results Past 24 Hours Test 05/29/17 15:35 05/29/17 16:00 Range/Units White Blood Count 9.56 4.8-10.8 K/uL Red Blood Count 4.33 4.2-5.4 M/uL Hemoglobin 14.2 12.0-16.0 g/dL Hematocrit 41.4 37-47 % Mean Corpuscular Volume 95.6 80-100 fL Mean Corpuscular Hemoglobin 32.8 25-34 pg Mean Corpuscular Hemoglobin Concent 34.3 32-36 g/dl Platelet Count 319 130-400 K/uL Mean Platelet Volume 10.5 7.4-10.4 fL Neutrophils (%) (Auto) 69.4 % Lymphocytes (%) (Auto) 22.8 % Monocytes (%) (Auto) 5.4 % Eosinophils (%) (Auto) 1.8 % Basophils (%) (Auto) 0.3 % Neutrophils # (Auto) 6.63 1.4-6.5 K/uL Lymphocytes # (Auto) 2.18 1.2-3.4 K/uL Monocytes # (Auto) 0.52 0.11-0.59 K/uL Eosinophils # (Auto) 0.17 0-0.5 K/uL Basophils # (Auto) 0.03 0-0.2 K/uL RDW Standard Deviation 48.3 36.4-46.3 fL RDW Coefficient of Variation 13.9 11.5-14.5 % Immature Granulocyte % (Auto) 0.3 % Immature Granulocyte # (Auto) 0.03 0.00-0.02 K/uL Prothrombin Time 10.2 9.0-12.0 SECONDS Prothromb Time International Ratio 1.0 0.9-1.1 Activated Partial Thromboplast Time 25.9 21.0-31.0 SECONDS Partial Thromboplastin Ratio 1.0 Sodium Level 139 136-145 mmol/L Potassium Level 3.7 3.5-5.1 mmol/L Chloride Level 104 98-107 mmol/L Carbon Dioxide Level 27 21-32 mmol/L Anion Gap 8.0 3-11 mmol/L Blood Urea Nitrogen 8 7-18 mg/dl Creatinine 0.98 0.60-1.20 mg/dl Est Creatinine Clear Calc Drug Dose 80.5 ml/min Estimated GFR () 86.0 Estimated GFR (Non- 74.2 BUN/Creatinine Ratio 8.3 10-20 Random Glucose 88 70-99 mg/dl Calcium Level 9.3 8.5-10.1 mg/dl Total Bilirubin 0.3 0.2-1 mg/dl Aspartate Amino Transf (AST/SGOT) 25 15-37 U/L Alanine Aminotransferase (ALT/SGPT) 30 12-78 U/L Alkaline Phosphatase 57 45-117 U/L Total Protein 8.0 6.4-8.2 gm/dl Albumin 4.1 3.4-5.0 gm/dl Globulin 3.9 2.5-4.0 gm/dl Albumin/Globulin Ratio 1.1 0.9-2 Urine Color YELLOW Urine Appearance CLEAR CLEAR Urine pH 6.0 4.5-7.5 Urine Specific [place] 1.011 1.000-1.030 Urine Protein NEG NEG Urine Glucose (UA) NEG NEG Urine Ketones TRACE NEG Urine Occult Blood TRACE NEG Urine Nitrite NEG NEG Urine Bilirubin NEG NEG Urine Urobilinogen NEG NEG Urine Leukocyte Esterase NEG NEG Urine WBC (Auto) 0 0-5 /hpf Urine RBC (Auto) 0-4 0-4 /hpf Urine Hyaline Casts (Auto) 0 0-5 /lpf Urine Epithelial Cells (Auto) 0-5 0-5 /lpf Urine Bacteria (Auto) NEG NEG Urine Test NEG NEG Diagnostic Radiology KUB HISTORY: Hx renal calculi, no bowel movement acute low back and right flank pain. COMPARISON: CT abdomen and pelvis 05/25/2017. FINDINGS: The bowel gas pattern is non-obstructive. There is moderate volume of formed stool within the right hemicolon. There is no organomegaly. 6 x 4 mm calculus which was previously seen within the region of the distal right ureter appears to have migrated slightly caudally and medially, possibly within the region of the urinary bladder. No pneumoperitoneum or pneumatosis. No fracture. IMPRESSION: Previously noted 6 x 4 mm calculus of the distal right ureter appears to have migrated slightly caudally and medially suggesting location within the urinary bladder lumen. Impression Assessment and Plan RIGHT URETERAL STONE Failed outpatient treatment CT a/p from 05/25- 1. 6 mm distal right ureteral calculus which results in mild right hydroureteronephrosis. 2. Multiple right renal calculi which measure up to 3 mm. Suspected punctate left renal calculi. KUB shows previously noted 6 x 4 mm calculus of the distal right ureter appears to have migrated slightly caudally and medially suggesting location within the urinary bladder lumen Creat stable, afebrile, no leukocytosis, UA does not appear infected IVF's; PRN analgesics and antiemetics Continue Flomax and strain urine Urology consulted; discussed with Dr. Dominguez NPO after midnight in case of procedure in AM CONSTIPATION Bowel regimen added- Miralax, Colace, PRN Dulcolax suppository ASTHMA Not in exacerbation PRN inhaler DVT PROPHYLAXIS Heparin SQ- Hold 05/30 AM dose for possible procedure FULL CODE DISPOSITION Admission med/ surg Follows with Dr. Quiroga for primary care Patient seen in collaboration with Dr. Schroeder. Please see his addendum. Attending Physician Addendum Dr. Schroeder I have seen and examined the patient with CHARY Dutta. Patient has 5mm right stone and admitted for pain control with supportive care to pass the renal stone vs urology intervention such as ureteroscopy or lithotripsy. Will control to monitor for symptoms of abdominal or flank pain and follow with urology service whether active intervention is needed VTE Prophylaxis VTE Risk Assessment Done? Y/N: Yes Risk Level: Low
[2017-05-29 23:20] VITALS: BP 108/72; PULSE 62; TEMP 36.7; O2SAT 98
[2017-05-30] MEDS: SODIUM CHLORIDE 0.9% 1000ML 1,000 ML IV SCH ×2 (03:50→10:53)
[2017-05-30] MEDS: HEPARIN SOD 5000 UNIT/0.5 ML CARP SQ SCH ×2 (06:00→13:43)
[2017-05-30 06:54] LABS: BASO % 0.6 %; BASO ABS # 0.04 K/uL (0-0.2); COMPLETE YES; EOS % 5.4 %; IG% 0.3 %; LYMPH % 39.2 %; LYMPH ABS # 2.53 K/uL (1.2-3.4); MEAN CELL VOLUME 95.6 fL (80-100); MEAN CORPUSCULAR HEMOGLOBIN 32.4 pg (25-34); MEAN CORPUSCULAR HGB CONC 33.8 g/dl (32-36); MEAN PLATELET VOLUME 11.3 fL (7.4-10.4); MONO % 9.6 %; NEUT % 44.9 %; PLATELET COUNT 285 K/uL (130-400); RED BLOOD COUNT 4.08 M/uL (4.2-5.4); WHITE BLOOD COUNT 6.45 K/uL (4.8-10.8)
[2017-05-30 07:06] VITALS: BP 108/69; PULSE 75; TEMP 36.9; O2SAT 98
[2017-05-30 07:29] LABS: BUN/CREATININE RATIO 6.9 (10-20); CALCIUM 8.4 mg/dl (8.5-10.1); CREATININE 0.94 mg/dl (0.60-1.20)
[2017-05-30] MEDS ORDERED: CETIRIZINE HCL 10 MG TAB PO SCH (09:00)
[2017-05-30] MEDS ORDERED: ETHINYL ESTRAD PO SCH (09:00)
[2017-05-30] MEDS ORDERED: NORGESTIMATE PO SCH (09:00)
[2017-05-30] MEDS: FLUTICASONE HFA 110MCG INHALER INH SCH (09:05)
[2017-05-30] MEDS: DOCUSATE SODIUM 100 MG CAP PO SCH (09:06)
--- NOTE | 2017-05-30 12:40 | Progress Note ---
Subjective Date of Service: May 30, 2017. Subjective Pt evaluation today including: conversation w/ patient, physical exam, chart review Voiding: no voiding problems no flank pain. no morphine, no nausea. tolerating clear liquids, no stone recovered but she missed the hat once. plan kub today to see if stone still present. Problem List Medical Problems: (1) Ureteral calculus Status: Acute Review of Systems Constitutional: + fatigue, No fever, No chills, No sweats Eyes: + eye pain, + problem reported (headaches) Cardiac: No chest pain, No orthopnea Female : + urinary frequency, + hematuria, + vaginal discharge (menses), No dysuria Endo: + fatigue Objective Vital Signs Date Time Temp Pulse Resp B/P (MAP) Pulse Ox O2 Delivery O2 Flow Rate FiO2 05/30/17 08:29 Room Air 05/30/17 07:06 36.9 75 16 108/69 (82) 98 Room Air 05/30/17 00:15 Room Air 05/29/17 23:20 36.7 62 16 108/72 (84) 98 05/29/17 19:40 Room Air 05/29/17 19:33 60 16 119/72 98 05/29/17 19:28 37.1 66 18 119/72 99 Room Air 05/29/17 18:42 74 16 129/71 96 Room Air 05/29/17 17:43 96 Room Air 05/29/17 16:12 62 05/29/17 16:09 96 Room Air 05/29/17 16:00 68 12 114/64 98 Room Air 05/29/17 14:04 37.0 89 20 140/79 96 Room Air Physical Exam General Appearance: WD/WN, no apparent distress Eyes: normal inspection ENT: hearing grossly normal Respiratory/Chest: normal breath sounds, no respiratory distress, no accessory muscle use Neurologic/Psychiatric: alert, normal mood/affect, oriented x 3 Laboratory Results Last 24 Hours Test 05/29/17 15:35 05/29/17 16:00 05/30/17 05:41 White Blood Count 9.56 K/uL 6.45 K/uL Red Blood Count 4.33 M/uL 4.08 M/uL Hemoglobin 14.2 g/dL 13.2 g/dL Hematocrit 41.4 % 39.0 % Mean Corpuscular Volume 95.6 fL 95.6 fL Mean Corpuscular Hemoglobin 32.8 pg 32.4 pg Mean Corpuscular Hemoglobin Concent 34.3 g/dl 33.8 g/dl Platelet Count 319 K/uL 285 K/uL Mean Platelet Volume 10.5 fL 11.3 fL Neutrophils (%) (Auto) 69.4 % 44.9 % Lymphocytes (%) (Auto) 22.8 % 39.2 % Monocytes (%) (Auto) 5.4 % 9.6 % Eosinophils (%) (Auto) 1.8 % 5.4 % Basophils (%) (Auto) 0.3 % 0.6 % Neutrophils # (Auto) 6.63 K/uL 2.89 K/uL Lymphocytes # (Auto) 2.18 K/uL 2.53 K/uL Monocytes # (Auto) 0.52 K/uL 0.62 K/uL Eosinophils # (Auto) 0.17 K/uL 0.35 K/uL Basophils # (Auto) 0.03 K/uL 0.04 K/uL RDW Standard Deviation 48.3 fL 48.7 fL RDW Coefficient of Variation 13.9 % 13.9 % Immature Granulocyte % (Auto) 0.3 % 0.3 % Immature Granulocyte # (Auto) 0.03 K/uL 0.02 K/uL Prothrombin Time 10.2 SECONDS Prothromb Time International Ratio 1.0 Activated Partial Thromboplast Time 25.9 SECONDS Partial Thromboplastin Ratio 1.0 Sodium Level 139 mmol/L 140 mmol/L Potassium Level 3.7 mmol/L 4.0 mmol/L Chloride Level 104 mmol/L 107 mmol/L Carbon Dioxide Level 27 mmol/L 25 mmol/L Anion Gap 8.0 mmol/L 8.0 mmol/L Blood Urea Nitrogen 8 mg/dl 6 mg/dl Creatinine 0.98 mg/dl 0.94 mg/dl Est Creatinine Clear Calc Drug Dose 80.5 ml/min 83.9 ml/min Estimated GFR () 86.0 90.5 Estimated GFR (Non- 74.2 78.1 BUN/Creatinine Ratio 8.3 6.9 Random Glucose 88 mg/dl 83 mg/dl Calcium Level 9.3 mg/dl 8.4 mg/dl Total Bilirubin 0.3 mg/dl Aspartate Amino Transf (AST/SGOT) 25 U/L Alanine Aminotransferase (ALT/SGPT) 30 U/L Alkaline Phosphatase 57 U/L Total Protein 8.0 gm/dl Albumin 4.1 gm/dl Globulin 3.9 gm/dl Albumin/Globulin Ratio 1.1 Urine Color YELLOW Urine Appearance CLEAR Urine pH 6.0 Urine Specific [place] 1.011 Urine Protein NEG Urine Glucose (UA) NEG Urine Ketones TRACE Urine Occult Blood TRACE Urine Nitrite NEG Urine Bilirubin NEG Urine Urobilinogen NEG Urine Leukocyte Esterase NEG Urine WBC (Auto) 0 /hpf Urine RBC (Auto) 0-4 /hpf Urine Hyaline Casts (Auto) 0 /lpf Urine Epithelial Cells (Auto) 0-5 /lpf Urine Bacteria (Auto) NEG Urine Test NEG Assessment and Plan right uvj stone olic resolved hopefully passed she still has pelvis pressure but uncertain if it is menses, or constipation or stone
[2017-05-30] MEDS ORDERED: SOD PHOSPHATE/SOD BIPHOSPHATE ENEMA 132 ML BTL PR STA (13:41)
[2017-05-30] MEDS ORDERED: SOD PHOSPHATE/SOD BIPHOSPHATE ENEMA 132 ML BTL ONE (13:47)
--- NOTE | 2017-05-30 14:33 | DIAGNOSTIC IMAGING REPORT ---
KUB CLINICAL HISTORY: 36 years-old Female presenting with rt uvj stone . TECHNIQUE: Single supine view of the abdomen was obtained. COMPARISON: 05/29/2017. FINDINGS: The distal right ureteral calculus remains in place in the region of the ureterovesical junction, unchanged. No additional calcification projects over the renal shadows. Moderate stool burden. No gross pneumoperitoneum. Lung bases clear. Osseous structures normal. IMPRESSION: 1. No change in position of the right ureteral calculus in the region of the ureterovesical junction. Electronically signed by: Modesto Muir M.D. 05/30/2017 2:32 PM Dictated Date/Time: 05/30/2017 2:30 PM
[2017-05-30 15:29] VITALS: BP 113/75; PULSE 64; TEMP 36.9; O2SAT 100
[2017-05-30] MEDS ORDERED: NURSING VERBAL MED ORDER ONE (17:30)
[2017-05-30] MEDS ORDERED: MRLP17X PO (18:21)
[2017-05-30 18:23] VITALS: BP 113/75; PULSE 64; TEMP 36.9; O2SAT 100
--- NOTE | 2017-05-30 18:23 | Discharge Instructions ---
Discharge Instructions Date of Service May 30, 2017. Admission Reason for Admission: Ureteral Calculus Discharge Discharge Diagnosis / Problem: Ureteral calculus Discharge Goals Goal(s): Decrease discomfort, Improve function Activity Recommendations Activity Limitations: resume your previous activity . Instructions / Follow-Up Instructions / Follow-Up FOLLOWUP WITH FAMILY DOCTOR Dorene Elias ON May AT 10:55AM FOLLOWUP WITH UROLOGY IN 2 WEEKS TO CALL (PHONE NO PROVIDED) IF PAIN RECURS. Current Hospital Diet Patient's current hospital diet: Clear Liquid Diet Discharge Diet Recommended Diet: Regular Diet Pending Studies Studies pending at discharge: no Medical Emergencies . Who to Call and When: Medical Emergencies: If at any time you feel your situation is an emergency, please call 911 immediately. . Non-Emergent Contact Non-Emergency issues call your: Primary Care Provider . . "Provider Documentation" section prepared by Chato Pappas. . VTE Core Measure Inpt VTE Proph given/why not?: Unfractionated heparin SQ
--- NOTE | 2017-05-30 18:59 | Progress Note ---
Internal Med Progress Note Date of Service: May 30, 2017. Provider Documentation: SUBJECTIVE: pain resolved moved bowels afebrile kub shows still stone present but patient wants to go home and pass stone at home OBJECTIVE: Vital Signs-as noted below Exam: General-alert and oriented. Not in distress ENT-normal hearing Neck-no neck masses Lungs-cta b/l no wheezing or crackles Heart-s1 and s2 heard regular rate and rhythm, no murmurs Abdomen- non tender no distension Extremities no edema no erythema Neuro-alert and oriented moves extremities Lab data as noted below. ASSESSMENT & PLAN: RIGHT URETERAL STONE Failed outpatient treatment CT a/p from 05/25- 1. 6 mm distal right ureteral calculus which results in mild right hydroureteronephrosis. 2. Multiple right renal calculi which measure up to 3 mm. Suspected punctate left renal calculi. KUB shows previously noted 6 x 4 mm calculus of the distal right ureter appears to have migrated slightly caudally and medially suggesting location within the urinary bladder lumen To Continue Flomax and strain urine KUB today shows stone still present but pain resolved and patient wants to go home and pass stone at home f/u urology Urology recommends to call them, if pain recurs and to come to er for procedure. CONSTIPATION Bowel regimen added- Miralax prn. ASTHMA stable discharged home Vital Signs: Date Time Temp Pulse Resp B/P (MAP) Pulse Ox O2 Delivery O2 Flow Rate FiO2 05/30/17 18:23 36.9 64 17 100 Room Air 05/30/17 15:29 36.9 64 17 113/75 (88) 100 Room Air 05/30/17 15:25 Room Air 05/30/17 08:29 Room Air 05/30/17 07:06 36.9 75 16 108/69 (82) 98 Room Air 05/30/17 00:15 Room Air 05/29/17 23:20 36.7 62 16 108/72 (84) 98 05/29/17 19:40 Room Air 05/29/17 19:33 60 16 119/72 98 05/29/17 19:28 37.1 66 18 119/72 99 Room Air Lab Results: Results Past 24 Hours Test 05/30/17 05:41 Range/Units White Blood Count 6.45 4.8-10.8 K/uL Red Blood Count 4.08 4.2-5.4 M/uL Hemoglobin 13.2 12.0-16.0 g/dL Hematocrit 39.0 37-47 % Mean Corpuscular Volume 95.6 80-100 fL Mean Corpuscular Hemoglobin 32.4 25-34 pg Mean Corpuscular Hemoglobin Concent 33.8 32-36 g/dl Platelet Count 285 130-400 K/uL Mean Platelet Volume 11.3 7.4-10.4 fL Neutrophils (%) (Auto) 44.9 % Lymphocytes (%) (Auto) 39.2 % Monocytes (%) (Auto) 9.6 % Eosinophils (%) (Auto) 5.4 % Basophils (%) (Auto) 0.6 % Neutrophils # (Auto) 2.89 1.4-6.5 K/uL Lymphocytes # (Auto) 2.53 1.2-3.4 K/uL Monocytes # (Auto) 0.62 0.11-0.59 K/uL Eosinophils # (Auto) 0.35 0-0.5 K/uL Basophils # (Auto) 0.04 0-0.2 K/uL RDW Standard Deviation 48.7 36.4-46.3 fL RDW Coefficient of Variation 13.9 11.5-14.5 % Immature Granulocyte % (Auto) 0.3 % Immature Granulocyte # (Auto) 0.02 0.00-0.02 K/uL Sodium Level 140 136-145 mmol/L Potassium Level 4.0 3.5-5.1 mmol/L Chloride Level 107 98-107 mmol/L Carbon Dioxide Level 25 21-32 mmol/L Anion Gap 8.0 3-11 mmol/L Blood Urea Nitrogen 6 7-18 mg/dl Creatinine 0.94 0.60-1.20 mg/dl Est Creatinine Clear Calc Drug Dose 83.9 ml/min Estimated GFR () 90.5 Estimated GFR (Non- 78.1 BUN/Creatinine Ratio 6.9 10-20 Random Glucose 83 70-99 mg/dl Calcium Level 8.4 8.5-10.1 mg/dl
--- NOTE | 2017-05-30 19:01 | Discharge Summary ---
Discharge Summary Date of Service May 30, 2017. Discharge Summary Admission Date: May 29, 2017 at 17:35 Discharge Date: May 30, 2017 Discharge Disposition: Home Principal Diagnosis: ureteral calculus Secondary Diagnoses/Problems: 1) Asthma Status: Chronic (2) Lumbar strain Status: Resolved (3) Status: Resolved Procedures: KUB 05/30/17: 1. No change in position of the right ureteral calculus in the region of the ureterovesical junction. Consultations: UROLOGY Medication Reconciliation New Medications: Polyethylene (Miralax) 17 Gm Pow 17 GM PO BID PRN for Constipation, #30 Continued Medications: Albuterol Hfa (Ventolin Hfa) 200 Puffs/07625 Mcg Aers 2 PUFFS INH Q4 PRN for SOB/Wheezing, INHALER Cetirizine (Zyrtec) 10 Mg Tab 10 MG PO DAILY, TAB Ethinyl Estrad/Norgestimate (Sprintec 28) 1 Tab Tab 1 TAB PO DAILY, TAB Fluticasone Propionate (Flovent Hfa) 120 Puffs/89697 Mcg Aero 2 PUFFS INH BID, INHALER Oxycodone/Acetaminophen 5MG/325MG (Percocet 5MG/325MG) Tab 1 TAB PO Q6H PRN for Pain, #20 TAB Tamsulosin Hcl (Flomax) 0.4 Mg Cap 0.4 MG PO HS, #6 CAP Admission Information HPI (per Admitting provider): This is a 36 year old female with PMH of asthma who presents to the ED with right flank pain. Pt was seen in [facility] ER on 05/25/[address] a/p showed 6 mm R ureteral stone with mild right hydronephrosis. Pt was discharged on Percocet and Flomax. She has not passed the stone. She continues with right flank pain as well as suprapubic pain. Pain was not controlled using Percocet at home, but feels better after IV morphine given in ER. She reports no BM x 4 days. She has not tried any medication for constipation. Had hematuria on 05/25, but no further hematuria from that time. She notes pressure and burning after urination. Had cold sweats yesterday. Denies fever. Has been eating/ drinking normally. No nausea/ vomiting. No chest tightness or wheezing. Physical Exam (per Admitting): General Appearance: WD/WN, no apparent distress, + pertinent finding ( mother at bedside) Head: normocephalic, atraumatic Eyes: normal inspection, sclerae normal ENT: normal ENT inspection, hearing grossly normal Neck: supple, trachea midline Respiratory/Chest: lungs clear, normal breath sounds, no respiratory distress, no accessory muscle use Cardiovascular: regular rate, rhythm, no murmur Abdomen/GI: normal bowel sounds, soft, + pertinent finding (+ suprapubic and RLQ tenderness) Back: + right CVA tenderness (mild) Extremities/Musculoskelatal: normal inspection, no pedal edema Neurologic/Psych: alert, normal mood/affect, oriented x 3 Skin: normal color, warm/dry Hospital Course RIGHT URETERAL STONE Failed outpatient treatment CT a/p from 05/25- 1. 6 mm distal right ureteral calculus which results in mild right hydroureteronephrosis. 2. Multiple right renal calculi which measure up to 3 mm. Suspected punctate left renal calculi. KUB shows previously noted 6 x 4 mm calculus of the distal right ureter appears to have migrated slightly caudally and medially suggesting location within the urinary bladder lumen To Continue Flomax and strain urine KUB today shows stone still present but pain resolved and patient wants to go home and pass stone at home f/u urology Urology recommends to call them, if pain recurs and to come to er for procedure. CONSTIPATION Bowel regimen added- Miralax prn. ASTHMA stable discharged home Total time spent on discharge = 35MINUTES This includes examination of the patient, discharge planning, medication reconciliation, and communication with other providers. Discharge Instructions Discharge Instructions Date of Service May 30, 2017. Admission Reason for Admission: Ureteral Calculus Discharge Discharge Diagnosis / Problem: Ureteral calculus Discharge Goals Goal(s): Decrease discomfort, Improve function Activity Recommendations Activity Limitations: resume your previous activity . Instructions / Follow-Up Instructions / Follow-Up FOLLOWUP WITH FAMILY DOCTOR Dorene Elias ON May AT 10:55AM FOLLOWUP WITH UROLOGY IN 2 WEEKS TO CALL (PHONE NO PROVIDED) IF PAIN RECURS. Current Hospital Diet Patient's current hospital diet: Clear Liquid Diet Discharge Diet Recommended Diet: Regular Diet Pending Studies Studies pending at discharge: no Medical Emergencies . Who to Call and When: Medical Emergencies: If at any time you feel your situation is an emergency, please call 911 immediately. . Non-Emergent Contact Non-Emergency issues call your: Primary Care Provider . . "Provider Documentation" section prepared by Chato Pappas. . VTE Core Measure Inpt VTE Proph given/why not?: Unfractionated heparin SQ
== END 2017-05-30 19:02 | disposition home or self-care (01) | DRG 694 ==
LOC: C.EDB 14:00 → C.3E 17:35 → EDBEDREQSVC 17:57 → ENRESERV 17:59
PROVIDERS: ADMIT Hospitalist; ATTEND Hospitalist
DX: N13.2 Hydronephrosis with renal and ureteral calculous obstruction (principal); J45.909 Unspecified asthma, uncomplicated; K59.00 Constipation, unspecified; Z87.891 Personal history of nicotine dependence; Z79.899 Other long term (current) drug therapy; Z79.891 Long term (current) use of opiate analgesic

== ENCOUNTER 2017-06-04 08:37 | Observation (INO) | payer OTHER ==
[~2017-06-04] VITALS: Ht 160 cm; Wt 82.0 kg
[~2017-06-04 08:37] MED LIST changes: +MRLP17X PO
[2017-06-04 09:40] VITALS: BP 124/75; PULSE 89; TEMP 36.8; O2SAT 98; O2SAT 99; Ht 160 cm; Wt 82.0 kg
[2017-06-04] MEDS ORDERED: D5W AND 1/2NSS 1,000 ML IV SCH (09:45)
[2017-06-04] MEDS ORDERED: KETOROLAC TROMETHAMINE 30 MG/ML VIAL IV PRN (09:45)
[2017-06-04] MEDS ORDERED: PATIENT'S HEIGHT AND/OR WEIGHT NEEDED SCH (10:00)
[2017-06-04] MEDS: ONDANSETRON INJ 2 MG/ML 2 ML VIAL IV. SCH ×2 (10:00→15:37)
[2017-06-04] MEDS: HYDROmorphone INJ 1 MG/ML SYR IV PRN ×2 (10:11→15:39)
--- NOTE | 2017-06-04 10:37 | Progress Note ---
Subjective Date of Service: Jun 04, 2017. Subjective patient struggling to pass a 4mm right distal ureteral stone pain returned early today she is on floor for pain control pending stone removal surgery this afternoon. NPO preliminary meds ordered will see her this afternoon. Objective Vital Signs Date Time Temp Pulse Resp B/P (MAP) Pulse Ox O2 Delivery O2 Flow Rate FiO2 06/04/17 09:40 36.8 89 20 124/75 (91) 98 Room Air Laboratory Results Last 24 Hours Test 06/04/17 09:38
[2017-06-04] MEDS ORDERED: CEFAZOLIN 2000 MG/60 ML D5W 60 ML IV SCH (14:00)
[2017-06-04 15:08] VITALS: BP 114/74; PULSE 64; TEMP 36.8; O2SAT 99
--- NOTE | 2017-06-04 15:25 | History and Physical ---
History & Physical Date Jun 04, 2017. Chief Complaint right renal colic History of Present Illness The patient is a 36 year old female with complaints of right renal colic. She is readmitted with obstructing right distal ureteral stone. She was trying to pass stone at home after it moved from low ureter to the UVJ. Her pain was medium most of this week and she was back to work. Then this am pain was severe again right LQ and right flank. Past Medical/Surgical History Medical Problems: (1) Asthma (2) Lumbar strain (3) Surgical Problems: (1) Status post therapeutic Additional History Hepatic Disease: No Endocrine Disorder: No Kidney Disease: No Hypertension: No Heart Disease: No Bleeding Tendencies: No Infectious Diseases: No Other: asthma Allergies Coded Allergies: Erythromycin (Unverified Allergy, Mild, 05/25/17) Home Medications Scheduled Cetirizine (Zyrtec), 10 MG PO DAILY Ethinyl Estrad/Norgestimate (Sprintec 28), 1 TAB PO DAILY Fluticasone Propionate (Flovent Hfa), 2 PUFFS INH BID Tamsulosin Hcl (Flomax), 0.4 MG PO HS Scheduled PRN Albuterol Hfa (Ventolin Hfa), 2 PUFFS INH Q4 PRN for SOB/Wheezing Oxycodone/Acetaminophen 5MG/325MG (Percocet 5MG/325MG), 1 TAB PO Q6H PRN for Pain Polyethylene (Miralax), 17 GM PO BID PRN for Constipation Physical Examination Skin: warm/dry, no rash Eyes: normal inspection Neck: no adenopathy Respiratory/Chest: lungs clear, normal breath sounds, no respiratory distress Cardiovascular: regular rate, rhythm, no edema, no murmur Abdomen / GI: normal bowel sounds Extremities: normal inspection Neurologic/Psych: no motor/sensory deficits, oriented x 3 Diagnosis right distal ureteral stone with severe pain ASA Classification: ASA Class II Plan of Treatment To OR today for cysto right ureteroscopy laser lithotripsy basket stone extraction possible stent NPO ivf iv pain meds toradol and dilaudid knee high scds ancef aws consultant to OR hopefully home tonight.
[2017-06-04 15:43] LABS: PREG INTERNAL NEGATIVE QC NEG CLEAR BACKGROUND; PREG INTERNAL POSITIVE QC POS CONTROL LINE
[2017-06-04] MEDS ORDERED: MIDAZOLAM HCL 1 MG/ML 2ML VIAL ONE (17:20)
[2017-06-04] MEDS ORDERED: FENTANYL CITRATE INJ 50 MCG/1 ML 2 ML VIAL ONE (17:20)
[2017-06-04] MEDS ORDERED: ONDANSETRON INJ 2 MG/ML 2 ML VIAL IV PRN (17:45)
[2017-06-04] MEDS ORDERED: FENTANYL CITRATE INJ 50 MCG/1 ML 2 ML VIAL IV PRN (17:45)
[2017-06-04] MEDS ORDERED: EpHEDrine SULFATE INJ 50 MG/ML AMP IV PRN (17:45)
[2017-06-04] MEDS ORDERED: HYDROmorphone INJ 1 MG/ML SYR IV PRN (17:45)
[2017-06-04] MEDS ORDERED: ATROPINE SULFATE 0.1 MG/ML 5ML SYR IV PRN (17:45)
[2017-06-04] MEDS ORDERED: PROMETHAZINE HCL INJ 12.5 MG in SODIUM CHLORIDE 0.9% 50ML 50 ML IV PRN (17:45)
[2017-06-04] MEDS ORDERED: KETAMINE HCL INJ 50 MG/ML 10 ML VIAL ONE (18:44)
[2017-06-04] MEDS ORDERED: BELLADONNA/OPIUM SUPP 60 MG SUPP PR ONE ×2 (18:48→18:57)
--- NOTE | 2017-06-04 19:06 | [facility] Operative Report ---
Operative Report Operative Date Jun 04, 2017. Pre-Operative Diagnosis Right ureteral colic, right uvj stone Post-Operative Diagnosis Right ureteral colic, spontaneous passage of stone Procedure(s) Performed Cystoscopy, Right Ureteroscopy Surgeon Dr. Dominguez Recruitment Intern Surgeon(s) none Estimated Blood Loss 0ml Findings no stone, sluggish efflux right ureter compared to left. Fluids 1100mL Specimens none per surgeon Drains none Anesthesia LMA Complication(s) None Disposition Recovery Room / PACU Indications return of severe right renal colic has been trying to pass right uvj stone for 10 days. Description of Procedure Patient was given general LMA and placed in lithotomy position. Her genitals were prepped and draped in sterile fashion. Time out held with team. I placed a 21 fr rigid cystoscope to bladder. The urethra is unremarkable. The UOs are slightly laterally displaced. They both efflux concentrated urine, slower from the right. I placed a road runner wire up right ureter and encounter no resistance and I do NOT see the radio-opaque stone in the right UVJ. I then placed a semirigid ureteroscope along side the wire up to the mid ureter. There is no stone. Ureter is nicely open. I left bladder empty and concluded case. I placed a belladonna and opium suppository for post-op pain. She transferred to recovery under my escort, in stable condition. Plan: Home today or tomorrow Pyridium for dysuria x 3 days flomax daily oral pain meds as needed ASA 2 clean contaminated case 20 seconds fluoro ancef antibiotic front desk host I attest to the content of the Intraoperative Record and any orders documented therein. Any exceptions are noted below.
--- NOTE | 2017-06-04 19:06 | DIAGNOSTIC IMAGING REPORT ---
KUB HISTORY: 36 years-old Female RIGHT STENT PLACEMENT COMPARISON: KUB 05/30/2017 TECHNIQUE: Single spot fluoroscopic image of the right hemipelvis was obtained utilizing 3.3 seconds of fluoroscopy time. FINDINGS: Single image demonstrates a right sided ureteroscope and guidewire. The previously noted calculus near the distal right ureter is not definitively seen. Please see procedural report for further details. IMPRESSION: Fluoroscopic assistance as above. The above report was generated using voice recognition software. It may contain grammatical, syntax or spelling errors. Electronically signed by: Brayan Galvan M.D. 06/04/2017 7:05 PM Dictated Date/Time: 06/04/2017 7:04 PM
[2017-06-04] MEDS ORDERED: DEXAMETHASONE SOD INJ 4 MG/ML VIAL ONE (19:08)
[2017-06-04] MEDS ORDERED: LIDOCAINE HCL 2% 2 ML VIAL (20MG/ML) ONE (19:08)
[2017-06-04] MEDS ORDERED: PROPOFOL IV EMULSION 10 MG/ML 20 ML VIAL IV ONE (19:08)
[2017-06-04] MEDS ORDERED: ONDANSETRON INJ 2 MG/ML 2 ML VIAL ONE (19:08)
--- NOTE | 2017-06-04 19:51 | Anesthesiology Progress Note ---
Anesthesia Post Op Note Date & Time Jun 04, 2017 at 19:51 Vital Signs Pain Intensity: 0 Vital Signs Past 12 Hours Date Time Temp Pulse Resp B/P (MAP) Pulse Ox O2 Delivery O2 Flow Rate FiO2 06/04/17 19:31 103/60 06/04/17 19:30 36.7 62 16 103/60 (68) 100 Nasal Cannula 2 06/04/17 19:27 70 21 100 06/04/17 19:27 69 21 06/04/17 19:26 109/64 06/04/17 19:22 68 13 06/04/17 19:22 69 13 100 06/04/17 19:21 118/63 06/04/17 19:21 118/63 06/04/17 19:19 78 19 06/04/17 19:19 78 19 06/04/17 19:19 78 19 100 06/04/17 19:19 78 19 100 06/04/17 19:16 116/63 06/04/17 19:16 116/63 06/04/17 19:14 62 17 100 06/04/17 19:14 62 17 100 06/04/17 19:14 62 17 06/04/17 19:14 36.4 75 16 119/59 100 Mask 10 06/04/17 19:14 62 17 06/04/17 19:11 135/78 06/04/17 19:11 135/78 06/04/17 19:09 70 14 100 06/04/17 19:09 70 14 100 06/04/17 19:09 70 14 06/04/17 19:09 70 14 06/04/17 19:06 116/64 06/04/17 19:06 116/64 06/04/17 19:05 119/59 06/04/17 19:05 119/59 06/04/17 19:04 79 15 100 06/04/17 19:04 79 15 06/04/17 19:04 79 15 06/04/17 19:04 79 15 100 06/04/17 16:58 36.9 72 16 94/61 (72) 99 Room Air 06/04/17 15:08 36.8 64 16 114/74 (87) 99 Room Air 06/04/17 09:40 36.8 89 20 124/75 (91) 98 Room Air 06/04/17 09:40 99 Room Air 06/04/17 09:40 99 Room Air Notes Mental Status: alert / awake / arousable, participated in evaluation Pt Amnestic to Procedure: Yes Nausea / Vomiting: adequately controlled Pain: adequately controlled Airway Patency, RR, SpO2: stable & adequate BP & HR: stable & adequate Hydration State: stable & adequate Anesthetic Complications: no major complications apparent
[2017-06-04 19:55] VITALS: O2SAT 100
[2017-06-04 20:30] VITALS: BP 97/57; PULSE 55; TEMP 36.3; O2SAT 97
--- NOTE | 2017-06-04 20:54 | Discharge Instructions ---
Discharge Instructions Date of Service Jun 04, 2017. Admission Reason for Admission: Stones Discharge Discharge Diagnosis / Problem: SPONTANEOUS PASSAGE RIGHT DISTAL STONE Discharge Goals Goal(s): Decrease discomfort, Improve disease control Activity Recommendations Activity Limitations: resume your previous activity Lifting Limitations: none Exercise/Sports Limitations: none May Resume Sexual Activity: when tolerated Shower/Bathe: no limitations Driving or Machine Use: resume 1 day after discharge . Instructions / Follow-Up Instructions / Follow-Up may see blood in urine take flomax daily if you have pain Discharge Diet Recommended Diet: Regular Diet Procedures Procedures Performed: Cystoscopy, Right Ureteroscopy Pending Studies Studies pending at discharge: no Medical Emergencies . Who to Call and When: Medical Emergencies: If at any time you feel your situation is an emergency, please call 911 immediately. . Non-Emergent Contact Non-Emergency issues call your: Urologist Call Non-Emergent contact if: temperature is above 100.5, your pain is not controlled . . "Provider Documentation" section prepared by Josi Dominguez. . VTE Core Measure Inpt VTE Proph given/why not?: SCD's [place] Drug Monitoring Program Search Results: patient reviewed within database, no issues identified
--- NOTE | 2017-06-04 20:58 | Discharge Summary ---
Discharge Summary Date of Service Jun 04, 2017. Discharge Summary Admission Date: Jun 04, 2017 at 09:13 Discharge Date: Jun 04, 2017 Discharge Disposition: Home Principal Diagnosis: right distal ureteral stone Secondary Diagnoses/Problems: asthma Procedures: cysto right ureteroscopy Medication Reconciliation Continued Medications: Albuterol Hfa (Ventolin Hfa) 200 Puffs/44435 Mcg Aers 2 PUFFS INH Q4 PRN for SOB/Wheezing, INHALER Cetirizine (Zyrtec) 10 Mg Tab 10 MG PO DAILY, TAB Ethinyl Estrad/Norgestimate (Sprintec 28) 1 Tab Tab 1 TAB PO DAILY, TAB Fluticasone Propionate (Flovent Hfa) 120 Puffs/08272 Mcg Aero 2 PUFFS INH BID, INHALER Oxycodone/Acetaminophen 5MG/325MG (Percocet 5MG/325MG) Tab 1 TAB PO Q6H PRN for Pain, #20 TAB Polyethylene (Miralax) 17 Gm Pow 17 GM PO BID PRN for Constipation, #30 Tamsulosin Hcl (Flomax) 0.4 Mg Cap 0.4 MG PO HS, #6 CAP Admission Information HPI (per Admitting provider): patient with return of severe colic. Has a known right uvj stone and had done well until today. Pain was severe. We plan ureteroscopy for litho and stone removal. Physical Exam (per Admitting): mild distress, has mild tachycardia, skin normal ext no edema + right cva tenderness Hospital Course patient admitted to floor for narcotic pain control. went to OR in evening. Found no stone. recovered uneventfully and sent home Total time spent on discharge = This includes examination of the patient, discharge planning, medication reconciliation, and communication with other providers. Discharge Instructions home today drink lots water take flomax if needed for pain daily may see blood in urine
[2017-06-04 21:01] VITALS: BP 120/80; PULSE 66; TEMP 36.8; O2SAT 95
[2017-06-04 21:05] VITALS: BP 120/80; PULSE 66; TEMP 36.8; O2SAT 95
== END 2017-06-04 21:20 | disposition home or self-care (01) ==
LOC: C.MSW 09:13
PROVIDERS: ADMIT Urology; ATTEND Urology
DX: N23 Unspecified renal colic (principal); Z87.442 Personal history of urinary calculi; J45.909 Unspecified asthma, uncomplicated; Z79.899 Other long term (current) drug therapy